=== PATIENT | male | born 1965 | race Caucasian/White ===

== ENCOUNTER 2019-07-01 19:22 | Emergency (ER) | payer BC ==
[2019-07-01 19:43] VITALS: RESP 18; TEMP 97.8; O2SAT 98
[2019-07-01] MEDS ORDERED: TDAP VACCINE 0.5 ML SUS IM ONE ×2 (19:57→19:58)
[2019-07-01 20:08] VITALS: BP 141/80; PULSE 74
== END 2019-07-01 20:03 | disposition home or self-care (01) ==
LOC: ED 19:22
DX: L23.1 Allergic contact dermatitis due to adhesives (principal); S81.811D Laceration without foreign body, right lower leg, subsequent encounter
CPT/HCPCS: 90471; 90715; 99282